=== PATIENT | male | born 1980 | race Caucasian/White ===

== ENCOUNTER 2021-03-07 11:33 | Emergency (ER) | payer OTHER ==
[~2021-03-07 11:33] MED LIST: PREDNISONE 50 M50 MG PO; PROVENTIL HFA6.7 GM INH; ZITHROMAX250 MG PO
== END 2021-03-07 12:35 | disposition left against medical advice (07) ==
LOC: ER1 11:33
DX: Z53.21 Procedure and treatment not carried out due to patient leaving prior to being seen by health care provider (principal)

== ENCOUNTER → 2021-05-09 | Outpatient (CLI) | payer OTHER | LOC: KOH-I 15:15 | DX: S83.004A Unspecified dislocation of right patella, initial encounter (principal); M25.461 Effusion, right knee | CPT/HCPCS: 73721 ==